=== PATIENT | male | born 1960 | race African-American/Black ===

== ENCOUNTER 2018-09-19 14:36 | Emergency (ER) | payer SELFPAY ==
[~2018-09-19] VITALS: Ht 175.3 cm; Wt 93.0 kg
[~2018-09-19 14:36] MED LIST: HYDR-34 PO
[2018-09-19] MEDS ORDERED: LIDOCAINE 2% 20 ML (XYLOCAINE) VIAL INJ STA (15:02)
[2018-09-19] MEDS ORDERED: LIDOCAINE PF 2% 5 ML (XYLOCAINE) VIAL ONE ×2 (15:03→15:25)
--- NOTE | 2018-09-19 15:23 | NUR ---
contacted wound care for appointment. States that since the patient is self pay, he needs to fill out FA forms prior to appointment being made. Admissions contacted
[2018-09-19] MEDS ORDERED: CEPH500T PO (15:57)
--- NOTE | 2018-09-19 15:57 | ED Upper Extremity ---
General Chief Complaint: Laceration Stated Complaint: L ARM LACERATION Nursing Triage Note: PT AMB TO RM TO ROOM 10 WITH COMPLAINT OF LACERATION TO LEFT ARM. PT STATES HAPPENED YESTERDAY BETWEEN 3-5PM. STATES LAST TETANUS WAS 2 YEARS AGO. Nursing Sepsis Screen: No Definite Risk History of Present Illness Date Seen by Provider: Sep 19, 2018 Time Seen by Provider: 14:50 Initial Comments 58-year-old -[place] male presents for laceration to his left arm. He reports this happened between 14 and 1700 yesterday on glass. He had his last tetanus injection 2 years ago. He denies any other injuries. He is not diabetic or hypertensive. No current medications and denies tobacco use. Onset: yesterday Pain/Injury Location: right arm Method of Injury: incised Allergies and Home Medications Allergies Coded Allergies: No Known Drug Allergies (Unverified , 02/16/16) Home Medications Cephalexin 500 Mg Tablet, 500 MG PO QID Prescribed by: MUNIR NORIEGA on 09/19/18 1557 Hydrocodone Bit/Acetaminophen 1 Each Tablet, 1 EACH PO PRN Prescribed by: LATONYA MAXWELL on 02/18/16 1324 Patient Home Medication List Home Medication List Reviewed: Yes Review of Systems Constitutional: no symptoms reported, see HPI Skin: see HPI, other (laceration left upper forearm) All Other Systems Reviewed Negative Unless Noted: Yes Past Zbltrfy-Nbnqos-Ldylkt Hx Past Med/Social Hx: Reviewed Nursing Past Med/Soc Hx Patient Social History Alcohol Use: Occasionally Uses Recreational Drug Use: Yes Drug of Choice: cocaine Smoking Status: Current Everyday Smoker Type Used: Cigarettes Recent Foreign Travel: No Contact w/Someone Who Travel: No Recent Infectious Disease Expo: No Recent Hopitalizations: No Immunizations Up To Date Tetanus Booster (TDap): Less than 5yrs PED Vaccines UTD: Yes Seasonal Allergies Seasonal Allergies: No Past Medical History Surgeries: Yes (back sx, right ring finger) Respiratory: No Cardiac: No Neurological: No Gastrointestinal: No Musculoskeletal: Yes Fractures Endocrine: No Cancer: No Psychosocial: No Integumentary: No Blood Disorders: No Physical Exam Vital Signs Vital Signs - First Documented 09/19/18 14:45 Temp 96.8 Pulse 76 Resp 16 B/P (MAP) 126/84 (98) Pulse Ox 98 O2 Delivery Room Air Capillary Refill : Less Than 3 Seconds Height, Weight, BMI Height: 5'9.00" Weight: 205lbs. 3.0oz. 92.462161sf; 31.8 BMI Method:Stated General Appearance: WD/WN, no apparent distress HEENT: PERRL/EOMI, normal ENT inspection Neck: non-tender, full range of motion, supple, normal inspection Cardiovascular: normal peripheral pulses, regular rate, rhythm Respiratory: chest non-tender, lungs clear, normal breath sounds Elbow/Forearm: normal ROM, Left, abrasions (laceration to lateral aspect of left arm, distal to elbow extending to proximal forearm 7 X 2.5 cm) Neurologic/Psychiatric: no motor/sensory deficits, alert, normal mood/affect Procedures/Interventions Wound Location: Upper Extremities (left upper forearm, lateral aspect) Wound Length (cm): 7 Wound's Depth, Shape: into muscle Wound Explored: clean Irrigated w/ Saline (ccs): 1500 Betadine Prep?: Yes Volume Anesthetic (ccs): 5 Suture Size: 4-0 Number of Sutures: 5 Sterile Dressing Applied?: Yes Progress Using sterile technique the skin was anesthetized with 5 ML's of 2% lidocaine. A quarter inch [place] drain was placed in the wound, the wound was loosely approximated with 5 simple sutures. The [place] drain was free of the sutures. A bulky sterile dressing covered by 3 inch [place] wrap was applied. The patient tolerated the procedure well. Progress/Results/Core Measures Results/Orders My Orders Orders - MUNIR NORIEGA Lidocaine 2% Injection 20 Ml (Xylocaine (09/19/18 15:02) Lidocaine 2% Pf 5 Ml (Xylocaine 2% Pf) (09/19/18 15:03) Lidocaine 2% Pf 5 Ml (Xylocaine 2% Pf) (09/19/18 15:25) Medications Given in ED Current Medications Medications Dose Ordered Sig/Angelica Route Start Time Stop Time Status Last Admin Dose Admin Lidocaine HCl 5 ml STK-MED ONCE .ROUTE 09/19/18 15:25 09/19/18 15:29 DC 09/19/18 15:49 5 ML Vital Signs/I&O 09/19/18 14:45 Temp 96.8 Pulse 76 Resp 16 B/P (MAP) 126/84 (98) Pulse Ox 98 O2 Delivery Room Air Blood Pressure Mean: 98 Progress Progress Note : Time: 14:50 Progress Note Patient seen and evaluated, no evidence of tendon injury at the wound site to the left upper forearm. Full range of motion to the left elbow, wrist, hand and fingers. Tendon function intact. Discussed at length with the patient the risks versus benefits of wound closure or wet-to-dry packing. Spoke with Dr. Bermudez by phone, agreed with either lose closure or wet to dry dressing. Patient agreed with lose approximation of wound with sutures. Understands with antibiotics, he could still have a wound infection since this is 23-26 hours old. 1555 discharge instructions and return precautions reviewed with the patient in detail. All questions answered. Departure Impression Primary Impression: Laceration of left upper arm Qualified Codes: S41.112A - Laceration without foreign body of left upper arm, initial encounter Disposition: HOME, SELF-CARE Condition: Improved Departure-Patient Inst. Decision time for Depature: 15:40 Referrals: NO,LOCAL PHYSICIAN (PCP/Family) Primary Care Physician Patient Instructions: Laceration Repair With Stitches (DC) Add. Discharge Instructions: Leave dressing on for 24 hours, then change dressing one to two times daily. Leave drain in place. Clean with peroxide with each dressing change. Take antibiotic as prescribed. You may take Tylenol 650 mg every 6 hours for pain. Cover wound for bathing. Keep wound clean and dry, no swimming pools, lakes, becerra, hot tubs, etc. Follow up with Dr. Bermudez ([facility]: [address] [facility]; [address]) Tuesday09/25/18 9:30 am at Call [phone] to change or cancel appt. Return to emergency dept for signs of infection: temperature greater than 101*, foul smelling or discolored drainage, redness or flu like symptoms. All discharge instructions reviewed with patient and/or family. Voiced understanding. Scripts Cephalexin (Cephalexin) 500 Mg Tablet 500 MG PO QID, #28 TAB Prov: MUNIR NORIEGA 09/19/18 Copy Copies To 1: KELSEY BERMUDEZ AMY ARNP Sep 19, 2018 15:57
[2018-09-19 16:17] VITALS: BP 136/71
== END 2018-09-19 16:14 | disposition home or self-care (01) ==
LOC: EDUNIT# 14:36 → ER 14:37
DX: S41.112A Laceration without foreign body of left upper arm, initial encounter (principal); F17.210 Nicotine dependence, cigarettes, uncomplicated; W26.8XXA Contact with other sharp object(s), not elsewhere classified, initial encounter
CPT/HCPCS: 12032